=== PATIENT | female | born 1995 | race Caucasian/White ===

== ENCOUNTER 2019-12-12 13:45 | Outpatient (CLI) | payer OTHER ==
--- NOTE | 2019-12-12 15:59 | Ultrasound Report ---
PROCEDURE: OB Detailed Eval INDICATIONS: SCREENING OUTSIDE/PRIOR DATING DATA: Last menstrual period (LMP): 07/22/2019. LMP-based estimated date of delivery (KHADIJAH): 04/27/2020. First dating scan (date and location): 09/30/2019. [facility]. Estimated date of delivery (KHADIJAH) from first dating scan: 04/25/2020. TECHNIQUE: Real-time scanning was performed of the fetus, with image documentation and biometric measurements. Endovaginal scanning: Not performed COMPARISON: 09/30/2019 FINDINGS: General: A single living intrauterine gestation is present. Presentation: Vertex Placenta: Placental position is anterior, without previa. Amniotic fluid index: 13.9 cm, 45% for gestational age. heart rate: 165 beats per minute. Maternal cervical canal: 5.1 cm long; normal length is 2.5 cm or more. biometrics: Biparietal diameter: 5.2 cm, 21 weeks 4 days Head circumference: 19.9 cm, 22 weeks 0 days Abdominal circumference: 17.2 cm, 22 weeks 1 day Femur length: 3.6 cm, 21 weeks 2 days Estimated gestational age from initial scan: 20 weeks 5 days Composite gestational age from present scan: 21 weeks 5 days Estimated weight and percentile: 451 g, 94th percentile Measurement variability in biometric dating: +/- 10 days from 12-20 weeks gestation, +/- 2 weeks from 20-30 weeks gestation, +/- 3 weeks at 30 weeks gestation or later. Anatomic survey: Neuro: Ventricles are normal at less than 10 mm. Cisterna magna is normal at 3-11 mm. Cerebellum i s normal in size and morphology. Nuchal skin fold: Normal at less than 6 mm between 14 and 20 weeks gestational age. Face: Nose and lips, facial profile are normal. Spine: No evidence for spina bifida. Heart: 4-chambered heart is present. The bilateral ventricular outflow tracts are poorly characteriz ed. Diaphragm: Diaphragm is intact. Stomach: Left-sided stomach is present. Kidneys: No hydronephrosis. Normal is less than 5 mm in 2nd trimester, less than 7 mm in 3rd trimester. Cord: 3 vessel cord has orthotopic insertion. Bladder: Normal in size. Extremities: All 4 extremities are visualized. IMPRESSION: 1. Single live intrauterine gestation with a composite gestational age of 21 weeks and 5 days which i s concordant with initial scan. 2. Estimated weight percentile is 94%. Developing macrosomia cannot be excluded and continued s onographic surveillance recommended. 3. Poor characterization of the ventricular outflow tracts. Reviewed by: Alessandra Moore MD on 12/12/2019 3:58 PM PDT Approved by: Alessandra Moore MD on 12/12/2019 3:58 PM PDT Station ID: [id number]
== END 2019-12-12 13:46 | disposition home or self-care (01) ==
LOC: DI 13:45
PROVIDERS: ATTEND Nurse Practitioner Obstetrics & Gynecology
DX: Z36.89 Encounter for other specified antenatal screening (principal)
CPT/HCPCS: 76811

== ENCOUNTER 2020-01-12 12:45 | Outpatient (CLI) | payer OTHER ==
--- NOTE | 2020-01-12 17:15 | Ultrasound Report ---
PROCEDURE: OB F/U or Repeat INDICATIONS: F/U FAS FOR VENTRICULAR OUTFLOW TRACTS OUTSIDE/PRIOR DATING DATA: Last menstrual period (LMP): 07/22/2019. LMP-based estimated date of delivery (KHADIJAH): 04/27/2020. First dating scan (date and location): 09/30/2019. Estimated date of delivery (KHADIJAH) from first dating scan: 04/25/2020. TECHNIQUE: Real-time scanning was performed of the fetus, with image documentation and biometric measurements. COMPARISON: OB ultrasound 12/12/2019, FINDINGS: General: A single living intrauterine gestation is present. Presentation: Vertex Placenta: Placental position is anterior, without previa. Amniotic fluid index: 20 cm, 88th percentile for gestational age. Largest pocket 7.4 cm. heart rate: 152 beats per minute. Maternal cervical canal: 4.9 cm long; normal length is 2.5 cm or more. biometrics: Estimated gestational age from initial scan: 25 weeks 1 day Other: 4 chambered heart and outflow tracts are within normal limits. IMPRESSION: 1. Single intrauterine with ultrasound gestational age of 25 weeks 1 day. 2. Four-chamber heart and outflow tracts are within normal limits. Reviewed by: Anne Mohan MD on 01/12/2020 5:14 PM PST Approved by: Anne Mohan MD on 01/12/2020 5:14 PM PST Station ID: [id number]
== END 2020-01-12 12:46 | disposition home or self-care (01) ==
LOC: DI 12:45
PROVIDERS: ATTEND Nurse Practitioner Obstetrics & Gynecology
DX: Z36.89 Encounter for other specified antenatal screening (principal)
CPT/HCPCS: 76816

== ENCOUNTER 2020-01-31 07:00 | Outpatient (CLI) | payer OTHER ==
[2020-01-31 11:39] LABS: BILIRUBIN,URINE NEGATIVE (NEGATIVE); GLUCOSE, URINE (UA) NEGATIVE (NEGATIVE); KETONES,URINE (UA) NEGATIVE (NEGATIVE); LEUKOCYTE ESTERASE, URINE NEGATIVE (NEGATIVE); NITRITE,URINE NEGATIVE (NEGATIVE); OCCULT BLOOD,URINE NEGATIVE (NEGATIVE); PROTEIN,URINE NEGATIVE (NEGATIVE); UROBILINOGEN,URINE 0.2 (NORMAL) E.U./dL (NORMAL)
[2020-01-31 11:42] LABS: CLARITY,URINE CLEAR (CLEAR)
== END 2020-01-31 23:59 | disposition home or self-care (01) ==
LOC: LAB.R 07:00
PROVIDERS: ATTEND Advanced Practice Midwife
DX: Z34.00 Encounter for supervision of normal first pregnancy, unspecified trimester (principal); R30.0 Dysuria
CPT/HCPCS: 81001; 81003; 87086

== ENCOUNTER 2020-02-02 07:16 | Outpatient (CLI) | payer OTHER ==
[2020-02-02 08:59] LABS: HGB - HEMOGLOBIN 11.6 g/dL (12.0-16.0); MEAN CORPUSCULAR HEMOGLOBIN 30.9 pg (27.0-31.0); MEAN CORPUSCULAR HGB CONC 33.1 g/dL (32.0-36.0); MEAN CORPUSCULAR VOLUME 93.1 fL (81.0-99.0); MEAN PLATELET VOLUME 10.3 fL (7.9-10.8); RED BLOOD COUNT 3.76 10^6/uL (4.20-5.40); RED CELL DISTRIBUTION WIDTH 12.6 % (12.0-15.0); WHITE BLOOD COUNT 10.7 x10^3/uL (4.8-10.8)
[2020-02-02 10:10] LABS: BILIRUBIN,URINE NEGATIVE (NEGATIVE); GLUCOSE, URINE (UA) NEGATIVE (NEGATIVE); KETONES,URINE (UA) NEGATIVE (NEGATIVE); LEUKOCYTE ESTERASE, URINE NEGATIVE (NEGATIVE); NITRITE,URINE NEGATIVE (NEGATIVE); OCCULT BLOOD,URINE NEGATIVE (NEGATIVE); PH,URINE 7.5 PH (5.0-7.5); PROTEIN,URINE NEGATIVE (NEGATIVE); UROBILINOGEN,URINE 0.2 (NORMAL) E.U./dL (NORMAL)
[2020-02-02 10:44] LABS: CLARITY,URINE CLEAR (CLEAR)
== END 2020-02-02 07:17 | disposition home or self-care (01) ==
LOC: LAB 07:16
PROVIDERS: ATTEND Advanced Practice Midwife
DX: Z34.00 Encounter for supervision of normal first pregnancy, unspecified trimester (principal); Z36.89 Encounter for other specified antenatal screening; R30.0 Dysuria
CPT/HCPCS: 36415; 81001; 81003; 82950; 85027; 87086

== ENCOUNTER 2020-03-01 18:40 | Outpatient (CLI) | payer OTHER ==
--- NOTE | 2020-03-02 09:55 | Ultrasound Report ---
PROCEDURE: OB F/U or Repeat INDICATIONS: UTERINE SIZE>DATE DISCREPANY OUTSIDE/PRIOR DATING DATA: Last menstrual period (LMP): 07/22/2019. LMP-based estimated date of delivery (KHADIJAH): 04/27/2020. First dating scan (date and location): 09/30/2019. Estimated date of delivery (KHADIJAH) from first dating scan: 04/27/2020. TECHNIQUE: Real-time scanning was performed of the fetus, with image documentation and biometric measurements. Endovaginal scanning: Not performed COMPARISON: 01/12/2020 FINDINGS: General: A single living intrauterine gestation is present. Presentation: Cephalic Placenta: Placental position is anterior, without previa. Amniotic fluid index: 12.3 cm, normal for gestational age. heart rate: 149 beats per minute. Maternal cervical canal: 4.6 cm long; normal length is 2.5 cm or more. biometrics: Biparietal diameter: 8.7 cm, 35 weeks, 1 day 99th percentile Head circumference: 32.2 cm, 36 weeks, 3 days 99th percentile Abdominal circumference: 30.7 cm, 34 weeks, 5 days 90th percentile Femur length: 6.1 cm, 31 weeks, 5 days 33rd percentile Estimated gestational age from initial scan: 31 weeks, 6 days. Composite gestational age from present scan: 34 weeks, 4 days Estimated weight and percentile: 2347 g, 96th percentile Measurement variability in biometric dating: +/- 10 days from 12-20 weeks gestation, +/- 2 weeks from 20-30 weeks gestation, +/- 3 weeks at 30 weeks gestation or more. IMPRESSION: 1. There is asymmetric growth with disproportionately short femur length versus macrosomia. 2. Composite gestational age by today's exam is 3 weeks and 3 days ahead of the expected gestational age. 3. Normal amniotic fluid volume. Reviewed by: Beba Abraham MD on 03/02/2020 9:53 AM PST Approved by: Beba Abraham MD on 03/02/2020 9:53 AM PST Station ID: [id number]
== END 2020-03-01 18:41 | disposition home or self-care (01) ==
LOC: DI 18:40
PROVIDERS: ATTEND Advanced Practice Midwife
DX: O26.843 Uterine size-date discrepancy, third trimester (principal); Z3A.34 34 weeks gestation of pregnancy

== ENCOUNTER 2020-03-28 15:53 | Outpatient (CLI) | payer OTHER ==
--- NOTE | 2020-03-28 17:20 | Ultrasound Report ---
PROCEDURE: OB F/U or Repeat INDICATIONS: UTERINE SIZE/DATE DISCREPANCY OUTSIDE/PRIOR DATING DATA: Last menstrual period (LMP): 07/22/2019. LMP-based estimated date of delivery (KHADIJAH): 04/27/2020. First dating scan (date and location): 09/30/2019. Estimated date of delivery (KHADIJAH) as documented from ordering provider: 04/27/2020. It is noted that in itial ultrasound dating was 04/25/2020. TECHNIQUE: Real-time scanning was performed of the fetus, with image documentation and biometric measurements. COMPARISON: OB ultrasound 12/12/2019, 01/12/2020, 03/01/2020 FINDINGS: General: A single living intrauterine gestation is present. Presentation: Vertex Placenta: Placental position is anterior, without previa. Amniotic fluid index: 12.8 cm, 39th percentile for gestational age. 5.7 cm heart rate: 133 beats per minute. Maternal cervical canal: 4.6 cm long; normal length is 2.5 cm or more. biometrics: Biparietal diameter: 9.4 cm 38 weeks 1 day Head circumference: 34.9 cm 40 weeks 3 days Abdominal circumference: 33.5 cm 37 weeks 3 days Femur length: 6.8 cm 35 weeks 0 days Estimated gestational age from initial scan: 35 weeks 5 days Composite gestational age from present scan: 37 weeks 5 days Estimated weight and percentile: 31 67 g 88th percentile Measurement variability in biometric dating: +/- 10 days from 12-20 weeks gestation, +/- 2 weeks from 20-30 weeks gestation, +/- 3 weeks at 30 weeks gestation or more. Other: Not applicable. IMPRESSION: 1. Single live with estimated weight at the 88th percentile. Reviewed by: Anne Mohan MD on 03/28/2020 5:19 PM PST Approved by: Anne Mohan MD on 03/28/2020 5:19 PM PST Station ID: [id number]
== END 2020-03-28 15:54 | disposition home or self-care (01) ==
LOC: DI 15:53
PROVIDERS: ATTEND Nurse Practitioner Obstetrics & Gynecology
DX: O26.849 Uterine size-date discrepancy, unspecified trimester (principal); Z3A.35 35 weeks gestation of pregnancy

== ENCOUNTER 2020-04-05 07:00 | Outpatient (CLI) | payer OTHER | END 2020-04-05 23:59 | disposition home or self-care (01) | LOC: LAB.N 07:00 | PROVIDERS: ATTEND Nurse Practitioner Obstetrics & Gynecology | DX: Z36.85 Encounter for antenatal screening for Streptococcus B (principal) | CPT/HCPCS: 87797 ==

== ENCOUNTER 2020-04-11 08:05 | Outpatient (CLI) | payer OTHER ==
[2020-04-11 18:33] LABS: CANDIDA GROUP DNA POSITIVE (NEGATIVE); CANDIDA KRUSEI DNA NEGATIVE (NEGATIVE); TRICHOMONAS VAGINALIS DNA NEGATIVE (NEGATIVE)
== END 2020-04-11 23:59 | disposition home or self-care (01) ==
LOC: LAB.R 08:05
PROVIDERS: ATTEND Nurse Practitioner Obstetrics & Gynecology
DX: N89.8 Other specified noninflammatory disorders of vagina (principal)
CPT/HCPCS: 87661; 87801

== ENCOUNTER 2020-04-12 08:00 | Outpatient (CLI) | payer OTHER ==
[2020-04-13 12:48] LABS: HEPATITIS C ANTIBODY NON-REACTIVE (NON-REACTIVE)
== END 2020-04-12 23:59 | disposition home or self-care (01) ==
LOC: LAB 08:00
PROVIDERS: ATTEND Advanced Practice Midwife
DX: Z34.00 Encounter for supervision of normal first pregnancy, unspecified trimester (principal)
CPT/HCPCS: 36415; 86803

== ENCOUNTER 2020-04-21 04:10 | Inpatient (IN) | payer OTHER ==
[2020-04-21] MEDS ORDERED: TRANEXAMIC ACID IN NACL 1,000 MG/100 ML BAG IV PRN (06:18)
[2020-04-21] MEDS ORDERED: OXYTOCIN 10 UNIT/ML VIAL IM PRN (06:18)
[2020-04-21] MEDS ORDERED: LIDOCAINE-MPF 1% 30 ML VIAL ID PRN (06:18)
[2020-04-21] MEDS ORDERED: miSOPROStoL 200 MCG TABLET BC PRN (06:18)
[2020-04-21] MEDS ORDERED: ONDANSETRON 4 MG/2 ML VIAL IVP PRN (06:18)
[2020-04-21] MEDS ORDERED: CARBOPROST TROMETHAMINE 250 MCG/ML AMP IM PRN (06:18)
[2020-04-21] MEDS ORDERED: SODIUM CHLORIDE FLUSH 0.9% 10 ML SYRINGE IVP PRN (06:18)
[2020-04-21] MEDS ORDERED: METHYLERGONOVINE 0.2 MG/ML VIAL IM PRN (06:18)
[2020-04-21] MEDS ORDERED: OXYTOCIN/SODIUM CHLORIDE 500 ML IV PRN (06:18)
[2020-04-21] MEDS ORDERED: fentaNYL 100 MCG/2 ML VIAL IVP PRN (06:18)
[2020-04-21] MEDS ORDERED: LACTATED RINGERS 1,000 ML IV SCH (07:00)
[2020-04-21 07:42] LABS: BASOPHILS # (AUTO) 0.1 10^3/uL (0.0-0.1); BASOPHILS % (AUTO) 0.7 %; EOSINOPHILS # (AUTO) 0.1 10^3/uL (0.0-0.7); EOSINOPHILS % (AUTO) 0.5 %; HGB - HEMOGLOBIN 11.9 g/dL (12.0-16.0); LYMPHOCYTES # (AUTO) 1.9 10^3/uL (1.5-3.5); MEAN CORPUSCULAR HEMOGLOBIN 30.9 pg (27.0-31.0); MEAN CORPUSCULAR VOLUME 90.9 fL (81.0-99.0); MEAN PLATELET VOLUME 10.6 fL (7.9-10.8); MONOCYTES # (AUTO) 0.7 10^3/uL (0.0-1.0); MONOCYTES % (AUTO) 5.4 %; NEUTROPHILS # (AUTO) 9.3 10^3/uL (1.5-6.6); NEUTROPHILS % (AUTO) 76.6 %; PLT - PLATELET COUNT 194 10^3/uL (130-450); RED BLOOD COUNT 3.85 10^6/uL (4.20-5.40); RED CELL DISTRIBUTION WIDTH 12.9 % (12.0-15.0); WHITE BLOOD COUNT 12.1 x10^3/uL (4.8-10.8)
--- NOTE | 2020-04-21 08:02 | HISTORY & PHYSICAL EXAMINATION ---
Admit History - Visit Reason Visit Reason: Contractions - : 1 Parity: 0 Premature: 0 Ectopic: 0 : 0 Care: positive: Other ([facility] after transfer of care from [facility] at 18.6wks) Risk/History: positive: None Complications This : positive: None Smoking Status: Never smoker - Mother's Labs Mother's Blood Type: positive: O Mother's RH: positive: Positive GBS: positive: Group B Step Negative Rubella Status: positive: Immune - Other Maternal History Other Maternal History: -24yo at 39.1wks gestation who presents to Labor and Delivery with complaints of contractions since approximately 0200 this morning. -Reports movement -Denies ctx/VB/LOF - care with W after roly from [facility] at 18.6wks - Complications -none -Dating Criteria -Initial US at 10.0wks c/w LMP for KHADIJAH 04/27/2020 -OB Hx *G1: current -Medications * vitamin-daily *Omeprazole 20mg daily -Allergies *NKDA -Medical History *GERD *Hx Kidney disease -Surgical History *Appendectomy *Upperco teeth extraction -Family History *MGF- diabetes, stroke/CVS, Dementia *PGF- Diabetes, HTN, Head disease/UT *MGM- Arithritis *Ovarian cancer- maternal aunt; malignant tumor of ovary -Social History *Non contributory - Labs, Immunizations, and Findings *Initial U/S: 09/30/2019 @ 10.0wks c/w LMP dating O pos/Rubella immune VZV: immune Genetic testing: Quad screen neg; CF neg FAS: 12/12/2019 FAS WNL with the exception of poor visualization of ventricular outflow tracts. WAYNE WNL. 3VC. EFW 94%tile. f/u US: heart views wnl F/u- outflow tracks WNL 03/01 growth US: 96%- follow up in 4 weeks 03/28- follow up WAYNE 12.8 (WNL). EFW 88%tile Glucola : 122 Influenza:12/01/2019 TDAP:01/31/2020 GBS at 36.6wks- neg HSV: denies in self and partner Breast pump Rx: 01/31/2020 MOD: Anticipate ; It's a BOY! Lele; Partner Matthew pp contraception: IUD- has used mirena, possibly desires Paragard. [place] -SVE /-3 per RN exam -Vertex by digital exam -EFW by daniela's Marni# -FHTs per flowsheet -Assessment *24yo at 39.1wks gestation who presents in early active labor * Heart Tones- Category I -Plan *Admit to inpatient Labor and Delivery *Monitoring- Continuous- may do intermittent per protocol *Comfort measures available- position changes, whirlpool tub, fentanyl, and epidural per maternal preference *Diet/Activity- per maternal preference *Anticipate Meds/Allgy - Allergies Allergies/Adverse Reactions: Allergies Allergy/AdvReac Type Severity Reaction Status Date / Time No Known Drug Allergies Allergy Verified 04/21/20 06:40 Review of Systems - All Other Systems All Other Systems: reports: Reviewed and negative Physical - Abdominal Exam Vital Signs: Temp Pulse Resp BP Pulse Ox 36.8 C 103 H 22 128/75 98 04/21/20 07:34 04/21/20 07:34 04/21/20 07:34 04/21/20 07:34 04/21/20 04:23 Contraction Frequency (min/apart): 3-5 Contraction Intensity: positive: Moderate Uterine Resting Tone: positive: Soft - Monitoring Heart Rate Baseline: 130 Strip Review: positive: Category I (moderate variability, accels 15x15, no decels) - Presentation Presentation: positive: Vertex - Vaginal Exam Membranes: positive: Membranes intact Plan for Labor - Plan For Labor I expect patient to be DC'd or transferred within 96 hours.: Yes
[2020-04-21] MEDS ORDERED: diphenhydrAMINE INJ 50 MG/ML VIAL IVP STA (11:49)
--- NOTE | 2020-04-21 14:01 | DELIVERY NOTE ---
Delivery Note - Labor Labor: positive: Spontaneous - Delivery Method Delivery Method: positive: Spontaneous vaginal delivery - Presentation Presentation: positive: Vertex, Compound, YENIFER - right occiput anterior - Laceration Laceration: positive: 1st degree, Periurethral - Suture Suture Type: positive: Vicryl Suture Size: positive: 3-0 - Delivery Outcome Delivery Outcome: positive: Livebirth - Formoso : positive: Placed in direct skin contact with mother, Stimulated, Pompey used : 8 : 9 - Cord Cord: positive: 3 vessels - Placenta Placenta: positive: Intact, Spontaneous - Estimated Blood Loss Estimated Blood Loss (in cc): 100 - Post Delivery Events Post Delivery Events: positive: No post delivery events - Delivery Comments (Free Text/Narrative) Delivery Comments (Free Text/Narrative): Note: Labor: This 24 year old, , @39.1 wks gestation by 10.0week Ultrasound, confirmed by LMP, presented in early active labor. Cervix was 4/80/-3 and vertex. FHR pattern demonstrated 130 baseline in a Category I pattern. Normal labor course. NOx used for pain management. SROM occurred @ 1050 and amount and color of fluid were noted to be moderate and clear. : Normal of a 3985gm male infant, named Lele, on 04/21/2020 @ 1246. Nuchal not present. The was placed on maternal abdomen, stimulated, dried and placed skin to skin. Apgars 8 at one minute and 9 at five minutes. The umbilical cord was allowed to stop pulsating at which time it was doubly clamped by CNM and cut by FOB. Pitocin administered via IV for hemostasis. Fundal massage and gentle cord traction applied for active third stage management. Cord blood was obtained. Placenta delivered spontaneously and intact at 1253. Three vessel cord. EBL 100mL. Fourth Stage: Uterine fundus firm and without excessive bleeding. The perineum, vagina, and cervix were inspected and found to have sustained bilateral first degree periurethral lacerations. They were each repairs under sterile conditions in standard fashion with a 3-0 vicryl. Vaginal examination following repair was done. Tissues well approximated. initiated. Family bonding well. Both mother and baby are in stable condition.
[2020-04-21] MEDS ORDERED: WITCH HAZEL/GLYCERIN 1 PAD TOP PRN (14:04)
[2020-04-21] MEDS ORDERED: HYDROCORTISONE 1% CREAM 28 GM TUBE PR PRN (14:04)
[2020-04-21] MEDS: IBUPROFEN 600 MG TABLET PO SCH ×2 (14:31→20:38)
[2020-04-21] MEDS: ACETAMINOPHEN 500 MG TABLET PO SCH ×2 (14:31→23:17)
[2020-04-21] MEDS: DOCUSATE SODIUM 100 MG CAPSULE PO SCH (20:39)
[2020-04-21] MEDS ORDERED: CALCIUM CARBONATE CHEW 500 MG TABLET PO PRN ×2 (22:14→22:25)
[2020-04-22] MEDS: IBUPROFEN 600 MG TABLET PO SCH ×4 (02:37→16:14)
[2020-04-22] MEDS: DOCUSATE SODIUM 100 MG CAPSULE PO SCH (07:47)
[2020-04-22] MEDS: ACETAMINOPHEN 500 MG TABLET PO SCH ×2 (07:47→16:14)
--- NOTE | 2020-04-22 12:57 | PROVIDER PROGRESS NOTE ---
Subjective - Prog Note Date Prog Note Date: 04/22/20 Prog Note Time: 12:57 - Subjective Pt reports feeling: Improved Subjective: S: Norma is resting comfortably in bed. She reports her bleeding as spotting, and her pain as minimal. Says she can barely feel her stitches. is a little tender, but she describes a good deep latch and excellent assessment of baby's mouth. She would like to go home today O: Fundus firm Lochia rubra A: 24yo s/p on pp day 1 Normal recovery P: Evaluate for discharge home today or tomorrow, per Peds Continue routine care Objective - Vital Signs/Intake & Output Vital Signs: Vital Signs x48h Temp Pulse Resp BP Pulse Ox 04/22/20 12:00 36.9 C 63 16 130/76 100 04/22/20 08:00 36.8 C 74 16 133/78 H 100 Intake & Output: Intake & Output 04/19/20 04/20/20 04/21/20 04/22/20 23:59 23:59 23:59 23:59 Intake Total 990 Output Total 1650 Balance -660 - Lab Results Fish Bones: 04/21/20 07:20
[2020-04-22 16:40] VITALS: BP 137/80
--- NOTE | 2020-04-22 17:29 | Discharge Plan ---
Discharge Plan Problem Reviewed?: Yes Disposition: Home, Self Care Condition: Good Additional Instructions or Follow Up instructions: Follow up with midwifery at 1 and 6 weeks No Smoking: If you smoke, Please STOP! Call for help. Follow-up with: Destini Chua ARNP [Provider Admit Priv/Credential] -
--- NOTE | 2020-04-22 17:39 | DISCHARGE SUMMARY ---
Discharge Summary Condition at Discharge: Good Discharge Disposition: 01 Home, Self Care - HPI History of Present Illness: Admit Date 04/21/2019 Discharge Date 04/22/2019 Diagnosis on Admission: 1. A 24yo at 39.1 week intrauterine 2. Early Active Labor Diagnosis on Discharge 1. A 24yo s/p spontaneous vaginal delivery on 04/21/2020 2. Normal recovery Brief History: This 24 year old, , @39.1 wks gestation by 10.0week Ultrasound, confirmed by LMP, presented in early active labor. Cervix was 4/80/-3 and vertex. FHR pattern demonstrated 130 baseline in a Category I pattern. Normal labor course. NOx used for pain management. SROM occurred @ 1050 and amount and color of fluid were noted to be moderate and clear. : Normal of a 3985gm male infant, named Lele, on 04/21/2020 @ 1246 Apgars were 8 and 9- and 1 and 5 minutes respectively. EBL 100 mL. The patient has a 1st degree bilateral periurethral lacerations that were repaired with 3-0 vicryl in usual fashion under sterile conditions. She has been doing well in her course. She is ambulating and tolerating a regular diet. She is urinating without difficulty and her lochia is normal. Her pain is well controlled with oral medications. She will be discharg ed home today on day #1 without need for prescriptions. She intends to follow up with Midwifery at [facility] in 1, and 6 weeks for routine visit. She has been given precautions to call if she has any worsening fevers, chills, abdominal pain, increased bleeding or foul smelling vaginal lochia. - ALLERGIES Allergies/Adverse Reactions: Allergies Allergy/AdvReac Type Severity Reaction Status Date / Time No Known Drug Allergies Allergy Verified 04/21/20 06:40 - MEDICATIONS Home Medications: Ambulatory Orders Medication Instructions Recorded Confirmed No Known Home Medications 04/21/20 04/21/20 - LABS Result Diagrams: 04/21/20 07:20
--- NOTE | 2020-04-22 18:50 | Labor Flowsheet ---
Labor Flowsheet Datetime Report Generated by CPN: 04/22/2020 18:50 Datetime: 04/22/2020 16:20 VITAL SIGNS NBP Sys/Sandra/Mean (mmHg): 137 : 80 : 92 Pulse: 66 Datetime: 04/22/2020 12:04 SpO2 (%): 100 Datetime: 04/21/2020 16:14 Respirations: 19 Temperature (C): 36.7 Temperature Route: Oral PAIN Pain Scale: 1 Pain Presence: Intermittent Pain Type: Cramping Pain Relief Measures: Comfort Measures Datetime: 04/21/2020 14:00 Stage of : Recovery Datetime: 04/21/2020 13:50 Pain Location: Perineum Datetime: 04/21/2020 12:55 LaborFlag: Labor Datetime: 04/21/2020 12:45 UTERINE ACTIVITY Monitor Mode: Palpation Frequency (min): 1-2 Quality: Strong Duration (sec): 50-60 Pattern: Normal: <= 5 Contractions in 10 Minutes Resting Tone (Palpate): Relaxed Comments: indeterminant baseline, provider at bedside Datetime: 04/21/2020 12:30 ASSESSMENT A Monitor Mode: Telemetry FHR Baseline Rate : 110 Variability: Moderate 6-25 bpm Accelerations: 15X15 Decelerations: Early; Late Category: Category II Datetime: 04/21/2020 12:26 Pushing Progress: Descent with Pushing Datetime: 04/21/2020 12:12 Pushing Position: Pushing Right Side Datetime: 04/21/2020 12:03 VAGINAL EXAM Dilatation (cm): 10.0 Effacement (%): 100 Station: 2 Exam by: H Harshil STAGE 2 Pushing: Coached on Pushing; Urge to Push Datetime: 04/21/2020 11:59 Actions for Decelerations: Oxygen Applied Datetime: 04/21/2020 11:57 MEDICATIONS Medication Comments: IV Benadryl Datetime: 04/21/2020 11:46 Vaginal Exam Comments: anterior lip Datetime: 04/21/2020 11:43 Stage 2 Comments: pt bearing down with ctxs, instructed not to push past cervix Datetime: 04/21/2020 11:36 COMMUNICATION Communication: Provider at Bedside Datetime: 04/21/2020 11:35 Patient Position/Activity: Left Lateral Datetime: 04/21/2020 11:32 Membrane Status: Ruptured Membranes Rupture Method: Artificial Amniotic Fluid Color: Clear Membrane Comments: forebag Datetime: 04/21/2020 11:29 Pain Coping: Crying; Writhing Datetime: 04/21/2020 11:22 Monitor Interventions for FHR: Ultrasound Adjusted Datetime: 04/21/2020 10:57 Comfort Measures: Breathing/Relaxation; Coaching; Back Rub Given; Family Support Patient Care Comments: pt standing forward leaning with support of Datetime: 04/21/2020 10:50 Amniotic Fluid Amount: Moderate Datetime: 04/21/2020 10:49 Hygiene: Kim Care I/O Interventions: Clear Liquids Given Datetime: 04/21/2020 10:47 Vaginal Bleeding: Normal Show Datetime: 04/21/2020 10:36 PATIENT CARE IV/Blood Work: IV Saline Locked Datetime: 04/21/2020 10:24 Monitor Interventions for UA: [place] Adjusted Datetime: 04/21/2020 10:10 Provider Reviewed Strip: Yes Datetime: 04/21/2020 10:08 Pain Assessment Comments: pt resumes use of nitrous, denies other medications Datetime: 04/21/2020 09:30 FHR Baseline Changes: No Baseline Change Datetime: 04/21/2020 09:08 Provider Notified (Name): H Swarthmore Datetime: 04/21/2020 08:31 Strip Reviewed by: H Swarthmore Communication Comments: no orders Datetime: 04/21/2020 07:50 Labor/Induction: Labor Stages; Activity Pain Management: Pain Scale/Goals; Comfort Measures Teaching Comments: educated on tub safety Datetime: 04/21/2020 07:11 MATERNAL ASSESSMENT Level of Consciousness: Alert DTR's/Clonus: DTRs 2+; No Clonus Headache: Denies Breath Sounds, Left: Clear and Equal Breath Sounds, Right: Clear and Equal Nausea/Vomiting: Denies RUQ Epigastric Pain: Denies ANESTHESIA Anesthesia Plans: None TEACHING Instructional Method: Verbal; Verbalized Understanding Plan of Care: Plan of Care Discussed; Vaginal Delivery Unit Routine: [place] to Room; Call Falk; Monitoring; Safety/Fall Risk Prevention; Bathroom Pr ivileges
== END 2020-04-22 18:40 | disposition home or self-care (01) | DRG 807 ==
LOC: WFO 04:10 → FBP 04:14 → WFO 06:17 → FBP 06:18
PROVIDERS: ADMIT Advanced Practice Midwife; ATTEND Advanced Practice Midwife
PROC: 10E0XZZ Delivery of Products of Conception, External Approach (ICD-10-PCS; principal; 2020-04-21)
PROC: 0HQ9XZZ Repair Perineum Skin, External Approach (ICD-10-PCS; 2020-04-21)
DX: O71.82 Other specified trauma to perineum and vulva (principal); Z37.0 Single live birth; Z3A.39 39 weeks gestation of pregnancy; Z20.822 Contact with and (suspected) exposure to COVID-19
CPT/HCPCS: 36415; 59025; 85025; 86850; 86900; 86901; 87635; 99213; A9270; J1200; J7120

== ENCOUNTER 2020-04-28 15:55 | Outpatient (CLI) | payer OTHER ==
--- NOTE | 2020-04-28 19:55 | Labor Flowsheet ---
Labor Flowsheet Datetime Report Generated by CPN: 04/28/2020 19:55 Datetime: 04/22/2020 16:20 VITAL SIGNS NBP Sys/Sandra/Mean (mmHg): 137 : 80 : 92 Pulse: 66 Datetime: 04/22/2020 12:04 SpO2 (%): 100 Datetime: 04/21/2020 16:14 Respirations: 19 Temperature (C): 36.7 Temperature Route: Oral PAIN Pain Scale: 1 Pain Presence: Intermittent Pain Type: Cramping Pain Relief Measures: Comfort Measures Datetime: 04/21/2020 14:00 Stage of : Recovery Datetime: 04/21/2020 13:50 Pain Location: Perineum Datetime: 04/21/2020 12:55 LaborFlag: Labor Datetime: 04/21/2020 12:45 UTERINE ACTIVITY Monitor Mode: Palpation Frequency (min): 1-2 Quality: Strong Duration (sec): 50-60 Pattern: Normal: <= 5 Contractions in 10 Minutes Resting Tone (Palpate): Relaxed Comments: indeterminant baseline, provider at bedside Datetime: 04/21/2020 12:30 ASSESSMENT A Monitor Mode: Telemetry FHR Baseline Rate : 110 Variability: Moderate 6-25 bpm Accelerations: 15X15 Decelerations: Early; Late Category: Category II Datetime: 04/21/2020 12:26 Pushing Progress: Descent with Pushing Datetime: 04/21/2020 12:12 Pushing Position: Pushing Right Side Datetime: 04/21/2020 12:03 VAGINAL EXAM Dilatation (cm): 10.0 Effacement (%): 100 Station: 2 Exam by: H Harshil STAGE 2 Pushing: Coached on Pushing; Urge to Push Datetime: 04/21/2020 11:59 Actions for Decelerations: Oxygen Applied Datetime: 04/21/2020 11:57 MEDICATIONS Medication Comments: IV Benadryl Datetime: 04/21/2020 11:46 Vaginal Exam Comments: anterior lip Datetime: 04/21/2020 11:43 Stage 2 Comments: pt bearing down with ctxs, instructed not to push past cervix Datetime: 04/21/2020 11:36 COMMUNICATION Communication: Provider at Bedside Datetime: 04/21/2020 11:35 Patient Position/Activity: Left Lateral Datetime: 04/21/2020 11:32 Membrane Status: Ruptured Membranes Rupture Method: Artificial Amniotic Fluid Color: Clear Membrane Comments: forebag Datetime: 04/21/2020 11:29 Pain Coping: Crying; Writhing Datetime: 04/21/2020 11:22 Monitor Interventions for FHR: Ultrasound Adjusted Datetime: 04/21/2020 10:57 Comfort Measures: Breathing/Relaxation; Coaching; Back Rub Given; Family Support Patient Care Comments: pt standing forward leaning with support of Datetime: 04/21/2020 10:50 Amniotic Fluid Amount: Moderate Datetime: 04/21/2020 10:49 Hygiene: Kim Care I/O Interventions: Clear Liquids Given Datetime: 04/21/2020 10:47 Vaginal Bleeding: Normal Show Datetime: 04/21/2020 10:36 PATIENT CARE IV/Blood Work: IV Saline Locked Datetime: 04/21/2020 10:24 Monitor Interventions for UA: [place] Adjusted Datetime: 04/21/2020 10:10 Provider Reviewed Strip: Yes Datetime: 04/21/2020 10:08 Pain Assessment Comments: pt resumes use of nitrous, denies other medications Datetime: 04/21/2020 09:30 FHR Baseline Changes: No Baseline Change Datetime: 04/21/2020 09:08 Provider Notified (Name): H Hamden Datetime: 04/21/2020 08:31 Strip Reviewed by: H Hamden Communication Comments: no orders Datetime: 04/21/2020 07:50 Labor/Induction: Labor Stages; Activity Pain Management: Pain Scale/Goals; Comfort Measures Teaching Comments: educated on tub safety Datetime: 04/21/2020 07:11 MATERNAL ASSESSMENT Level of Consciousness: Alert DTR's/Clonus: DTRs 2+; No Clonus Headache: Denies Breath Sounds, Left: Clear and Equal Breath Sounds, Right: Clear and Equal Nausea/Vomiting: Denies RUQ Epigastric Pain: Denies ANESTHESIA Anesthesia Plans: None TEACHING Instructional Method: Verbal; Verbalized Understanding Plan of Care: Plan of Care Discussed; Vaginal Delivery Unit Routine: [place] to Room; Call Falk; Monitoring; Safety/Fall Risk Prevention; Bathroom Pr ivileges
== END 2020-04-28 16:50 | disposition home or self-care (01) ==
LOC: WFO 15:55 → FBP 15:56 → WFO 16:50
PROVIDERS: ATTEND Nurse Practitioner Obstetrics & Gynecology
DX: Z39.1 Encounter for care and examination of lactating mother (principal)
CPT/HCPCS: 99403

== ENCOUNTER 2020-05-17 10:56 | Outpatient (CLI) | payer OTHER | END 2020-05-17 12:00 | disposition home or self-care (01) | LOC: WFO 10:56 → FBP 10:58 → WFO 12:00 | PROVIDERS: ATTEND Advanced Practice Midwife | DX: Z39.1 Encounter for care and examination of lactating mother (principal) | CPT/HCPCS: 99404 ==

== ENCOUNTER 2020-05-19 10:54 | Outpatient (CLI) | payer OTHER | END 2020-05-19 11:25 | disposition home or self-care (01) | LOC: WFO 10:54 → FBP 10:56 → WFO 11:25 | PROVIDERS: ATTEND Advanced Practice Midwife | DX: Z39.1 Encounter for care and examination of lactating mother (principal) | CPT/HCPCS: 99402 ==

== ENCOUNTER 2021-07-31 15:47 | Outpatient (CLI) | payer OTHER ==
[2021-07-31 16:11] LABS: BASOPHILS # (AUTO) 0.1 10^3/uL (0.0-0.1); BASOPHILS % (AUTO) 0.8 %; EOSINOPHILS # (AUTO) 0.1 10^3/uL (0.0-0.7); EOSINOPHILS % (AUTO) 1.1 %; HCT - HEMATOCRIT 37.3 % (37.0-47.0); HGB - HEMOGLOBIN 12.7 g/dL (12.0-16.0); LYMPHOCYTES # (AUTO) 1.7 10^3/uL (1.5-3.5); LYMPHOCYTES % (AUTO) 26.9 %; MEAN CORPUSCULAR HEMOGLOBIN 29.7 pg (27.0-31.0); MEAN CORPUSCULAR VOLUME 87.4 fL (81.0-99.0); MEAN PLATELET VOLUME 9.8 fL (7.9-10.8); MONOCYTES # (AUTO) 0.4 10^3/uL (0.0-1.0); NEUTROPHILS % (AUTO) 63.9 %; PLT - PLATELET COUNT 237 10^3/uL (130-450); RED BLOOD COUNT 4.27 10^6/uL (4.20-5.40); RED CELL DISTRIBUTION WIDTH 12.2 % (12.0-15.0); WHITE BLOOD COUNT 6.3 x10^3/uL (4.8-10.8)
[2021-08-01 04:09] LABS: HBsAG SCREEN Negative (Negative)
[2021-08-01 06:10] LABS: HCV AB <0.1 s/co ratio (0.0-0.9); HIV SCREEN 4TH GENERATION Non Reactive (Non Reactive)
[2021-08-01 07:11] LABS: VARICELLA-ZOSTER AB IGG 1739 index (Immune >165)
[2021-08-01 08:10] LABS: RPR Non Reactive (Non Reactive)
== END 2021-07-31 15:48 | disposition home or self-care (01) ==
LOC: LAB 15:47
PROVIDERS: ATTEND Nurse Practitioner Obstetrics & Gynecology
DX: Z36.89 Encounter for other specified antenatal screening (principal); Z36.0 Encounter for antenatal screening for chromosomal anomalies
CPT/HCPCS: 36415; 85025; 86592; 86762; 86787; 86803; 86850; 86900; 86901; 87340; 87389

== ENCOUNTER 2021-12-06 12:23 | Outpatient (CLI) | payer OTHER ==
[2021-12-06 17:36] LABS: HCT - HEMATOCRIT 32.7 % (37.0-47.0); HGB - HEMOGLOBIN 10.9 g/dL (12.0-16.0); MEAN CORPUSCULAR HEMOGLOBIN 30.3 pg (27.0-31.0); MEAN CORPUSCULAR HGB CONC 33.3 g/dL (32.0-36.0); MEAN CORPUSCULAR VOLUME 90.8 fL (81.0-99.0); RED BLOOD COUNT 3.6 10^6/uL (4.20-5.40); RED CELL DISTRIBUTION WIDTH 13.4 % (12.0-15.0)
== END 2021-12-06 12:24 | disposition home or self-care (01) ==
LOC: LAB.N 12:23
PROVIDERS: ATTEND Nurse Practitioner Obstetrics & Gynecology
DX: Z36.9 Encounter for antenatal screening, unspecified (principal)
CPT/HCPCS: 36415; 82950; 85027

== ENCOUNTER 2022-02-18 06:52 | Inpatient (IN) | payer OTHER ==
[2022-02-18] MEDS ORDERED: miSOPROStoL 200 MCG TABLET ONE (09:44)
[2022-02-18] MEDS ORDERED: TRANEXAMIC ACID IN NACL 1,000 MG/100 ML BAG IV ONE (09:44)
[2022-02-18] MEDS ORDERED: TRANEXAMIC ACID IN NACL 1,000 MG/100 ML BAG IV PRN (10:05)
[2022-02-18] MEDS ORDERED: SODIUM CHLORIDE FLUSH 0.9% 10 ML SYRINGE IVP PRN (10:05)
[2022-02-18] MEDS ORDERED: hydrALAZINE INJ 20 MG/ML VIAL IVP PRN ×2 (10:05)
[2022-02-18] MEDS ORDERED: METHYLERGONOVINE 0.2 MG/ML VIAL IM PRN (10:05)
[2022-02-18] MEDS ORDERED: miSOPROStoL 200 MCG TABLET BC PRN (10:05)
[2022-02-18] MEDS ORDERED: OXYTOCIN 10 UNIT/ML VIAL IM PRN (10:05)
[2022-02-18] MEDS ORDERED: NIFEdipine 10 MG CAPSULE PO PRN (10:05)
[2022-02-18] MEDS ORDERED: TERBUTALINE 1 MG/ML VIAL SUBQ PRN (10:05)
[2022-02-18] MEDS ORDERED: lidocaine 1% 20 ML MDV ID PRN (10:05)
[2022-02-18] MEDS ORDERED: miSOPROStoL 200 MCG TABLET PR PRN (10:05)
[2022-02-18] MEDS ORDERED: CARBOPROST TROMETHAMINE 250 MCG/ML AMP IM PRN (10:05)
[2022-02-18] MEDS ORDERED: LABETALOL 20 MG/4 ML SYRINGE IVP PRN ×3 (10:05)
[2022-02-18] MEDS ORDERED: fentaNYL 100 MCG/2 ML VIAL IVP PRN (10:05)
--- NOTE | 2022-02-18 10:27 | HISTORY & PHYSICAL EXAMINATION ---
Admit History - Visit Reason Visit Reason: Contractions - : 2 Parity: 1 Premature: 0 Ectopic: 0 : 0 Care: positive: [facility] Risk/History: positive: None Complications This : positive: None Smoking Status: Never smoker - Mother's Labs Mother's Blood Type: positive: O Mother's RH: positive: Positive GBS: positive: Group B Step Negative Rubella Status: positive: Immune Meds/Allgy - Home Medications Home Medications: Ambulatory Orders Medication Instructions Recorded Confirmed Oseltamivir Phosphate [Tamiflu] 75 mg PO BID #10 cap 01/17/22 - Allergies Allergies/Adverse Reactions: Allergies Allergy/AdvReac Type Severity Reaction Status Date / Time No Known Drug Allergies Allergy Verified 04/21/20 06:40 Review of Systems - Constitutional Constitutional: denies: Fatigue, Fever, Chills - Eyes Eyes: denies: Blurred vision, Spots in vision, Dipolpia - Cardiovascular Cariovascular: denies: Irregular heart rate, Palpitations, Chest pain, Edema - Respiratory Respiratory: denies: Cough, Wheezing, SOB at rest - Gastrointestinal Gastrointestinal: denies: Constipation, Diarrhea, Nausea, Vomiting - Genitourinary Genitourinary: denies: Dysuria - Integumentary Integumentary: denies: Rash, Pruritis - Neurological Neurological: denies: Headache - Psychiatric Psychiatric: denies: Depression, Anxiety Physical - Abdominal Exam Vital Signs: Temp Pulse Resp BP Pulse Ox O2 Flow Rate 37.1 C 85 16 134/69 H 02/18/22 07:40 02/18/22 07:40 02/18/22 07:40 02/18/22 07:40 Contraction Frequency (min/apart): 10 Contraction Intensity: positive: Moderate Uterine Resting Tone: positive: Soft - Monitoring Heart Rate Baseline: 140 Strip Review: positive: Category I - Presentation Presentation: positive: Vertex - Vaginal Exam Membranes: positive: Membranes intact Dilation (in cm): 4 Effacement (%): 70 Station: positive: -2 Cervical Position: positive: Posterior - Speculum Exam Speculum Exam Performed: positive: No Findings: positive: Other Plan for Labor - Plan For Labor I expect patient to be DC'd or transferred within 96 hours.: Yes Plan for Labor: HPI: This 26yo @ 39.2wks gestation by LMP c/w 9.6wk U/S presents to [facility] with c/o contractions. She was found to contract every 10 minutes however was arnaud every 3-5 minutes at home. Upon arrival cervix was 3/50/-2, posterior and vertex with intact membranes. She ambulated x 2 hours and repeat S VE unchanged. Secondary to gestational age pt desires to be admitted for labor augmentation. She denies vaginal bleeding however did have some pink tinged discharge early this morning. She denies leakage of fluid and reports +FM. She has been a patient of [facility] for the duration of her which has remained uncomplicated. She will be admitted to [facility] for AROM for labor augmentation. She is supported by her Matthew. Dating criteria: LMP 05/19/2021 Initial U/S @ 9.6wks c/w LMP dating Serial exams - agree residential counselor Hx: Term NSVB x 1 (39.1wks , [id number], male). SAB x0. Last pap 2018 WNL, No hx of abnormals. Medical Hx: Recurrent UTIs, Anxiety/depression Surgical Hx: Appendectomy - 2007 Family Hx: Diabetes- MGF, PGF, PGM; Stroke- MGF; Cancer- PGM Meds: PNV Allergies: None known Social: , lives with Matthew who is active duty [place]. Works as a teacher in the [employer]. No tobacco, ETOH or recreational drug use. Caffeine intake is minimal. course: Initial U/S @ 9.6wks c/w LMP dating O positive, antibody negative Rubella immune; varicella immune NIPS - negative FAS @ 20wks WNL. Anterior placenta, no previa. Size c/w dating. 3VC. WAYNE WNL. Glucola 129 Tdap 12/06/2021 GBS neg Physical exam: Normocephalic, atraumatic Heart RRR w/o M/G/R Lungs CTAB Abdomen gravid, soft, nontender. EFW 3800g FHR baseline 140s, moderate variability, + accels, no decels Contractions palpate moderate every 8-10 minutes with soft resting tone SVE 4/70/-2, posterior. Vertex. Membranes intact - AROM occurred at 1017 and was noted to be a moderate amount of clear fluid. Bilateral LE's trace edema. Mood is good. Assessment: 26yo @ 39.2wks gestation by LMP c/w 9.6wks gestation Early labor GBS neg FHR Category I Plan: Pt admitted for labor augmentation with AROM. Repeat SVE x 4 hours or sooner if needed. Continuous monitoring. Jacuzzi PRN. Nitrous oxide PRN. Epidural per maternal request. Anticipate .
--- NOTE | 2022-02-18 10:34 | PROVIDER PROGRESS NOTE ---
- HPI Chief Complaint: Labor Check Current : Current EDU 02/23/22 Gestation 39 Weeks and 2 Days 2 Para 1 Vital Signs Temperature 37.1 C 02/18/22 07:40 Heart Rate 85 02/18/22 07:40 Respiratory Rate 16 02/18/22 07:40 Blood Pressure 134/69 H 02/18/22 07:40 Temperature 37.1 C 02/18/22 07:40 Heart Rate 85 02/18/22 07:40 Respiratory Rate 16 02/18/22 07:40 Blood Pressure 134/69 H 02/18/22 07:40 O2 Saturation If not protocol: Oxygen Flow, liters/minute - Procedures OB Procedure Performed: NST Diagnosis/Indication for NST: Other NST Procedure: NST Procedure Start Date 02/18/22 Start Time 07:10 Stop Time 07:40 Vibroacoustic Stimulation Used No Patient States Movement Yes - Plan Plan: Norma presents today with c/o contractions. She was arnaud intermittently yesterday evening but states they never got closer than 10 minutes apart and she was able to fall asleep. She reports mild contractions throughout the night but nothing consistent or overly painful. She states this morning when she was up and around her contractions increased in both frequency and intensity and progressed to every 3-5 minutes. She denies vaginal bleeding or leakage of fluid and reports +FM. She is supported by her Matthew today. NST reactive. FHR baseline 140s, moderate variability, + accels, no decels Contractions palpate moderate every 10 minutes with soft resting tone SVE 3/50/-2, posterior, vertex. Repeat after 2 hours - unchanged. Reviewed options with patient of expectant management with discharge home vs augmentation of labor with AROM. Reviewed risks, benefits, alternatives and all questions answered. Pt elects to be admitted for labor augmentation. FINAL DIAGNOSIS: Early labor, >37wks gestation
[2022-02-18 10:52] LABS: BASOPHILS # (AUTO) 0.1 10^3/uL (0.0-0.1); BASOPHILS % (AUTO) 0.5 %; EOSINOPHILS # (AUTO) 0.1 10^3/uL (0.0-0.7); EOSINOPHILS % (AUTO) 0.7 %; HCT - HEMATOCRIT 34.3 % (37.0-47.0); HGB - HEMOGLOBIN 11.6 g/dL (12.0-16.0); LYMPHOCYTES # (AUTO) 1.6 10^3/uL (1.5-3.5); LYMPHOCYTES % (AUTO) 16.5 %; MEAN CORPUSCULAR HEMOGLOBIN 30.2 pg (27.0-31.0); MEAN CORPUSCULAR HGB CONC 33.8 g/dL (32.0-36.0); MEAN CORPUSCULAR VOLUME 89.3 fL (81.0-99.0); MEAN PLATELET VOLUME 10.3 fL (7.9-10.8); MONOCYTES # (AUTO) 0.6 10^3/uL (0.0-1.0); NEUTROPHILS # (AUTO) 7.1 10^3/uL (1.5-6.6); NEUTROPHILS % (AUTO) 75.2 %; PLT - PLATELET COUNT 167 10^3/uL (130-450); RED BLOOD COUNT 3.84 10^6/uL (4.20-5.40); RED CELL DISTRIBUTION WIDTH 13.2 % (12.0-15.0); WHITE BLOOD COUNT 9.4 x10^3/uL (4.8-10.8)
[2022-02-18] MEDS ORDERED: LACTATED RINGERS 1,000 ML IV SCH (11:00)
[2022-02-18] MEDS ORDERED: SODIUM CHLORIDE FLUSH 0.9% 10 ML SYRINGE IVP SCH (11:00)
[2022-02-18] MEDS: OXYTOCIN/SODIUM CHLORIDE 500 ML IV PRN ×2 (15:11→17:40)
[2022-02-18] MEDS ORDERED: HYDROCORTISONE 1% CREAM 28 GM TUBE PR PRN (15:36)
[2022-02-18] MEDS ORDERED: WITCH HAZEL/GLYCERIN 1 PAD TOP PRN (15:36)
--- NOTE | 2022-02-18 15:36 | DELIVERY NOTE ---
Delivery Note - Labor Labor: positive: Augmented by ARM - Infant Delivery Method Delivery Method: positive: Spontaneous vaginal delivery - Presentation Presentation: positive: Vertex, OA - occiput anterior - Nuchal Cord Nuchal Cord: positive: None - Amniotic Fluid Description Amniotic Fluid Description: positive: Clear - Episiotomy Type Episiotomy Type: positive: None - Laceration Laceration: positive: None - Delivery Outcome Delivery Outcome: positive: Livebirth - [place]: positive: Placed in direct skin contact with mother, Stimulated, Warmed, [place] used sex: positive: Female - Cord Cord: positive: 3 vessels - Placenta Placenta: positive: Intact, Spontaneous - Estimated Blood Loss Estimated Blood Loss (in cc): 300 - Post Delivery Events Post Delivery Events: positive: No post delivery events - Delivery Comments (Free Text/Narrative) Delivery Comments (Free Text/Narrative): Labor: This 26yo @ 39.2wks gestation by LMP c/w 9/6wk U/S presented on 02/18/2022 with c/o contractions. Cervix was 3/70/-2, posterior and vertex with intact membranes. AROM occurred for lab or augmentation at 1015 and was noted to be a moderate amount of clear fluid. FHR pattern demonstrated Category I pattern for the majority of her labor with intermittent periods of Category II however overall remained reassuring. Normal labor course. Pt began spontaneously pushing at 1453 and is c/c/0 at 1455. : Normal SVB of viable female on 02/18/2022 @ 1509. No nuchal cord. The was placed on maternal abdomen, stimulated, dried, and placed skin to skin. 's were 7/8 at 1 and 5 minutes respectively. Pitocin administered via IV for hemostasis. The umbilical cord was allowed to stop pulsating at which time it was doubly clamped by CNM and cut by FOB. 3VC. Cord blood was obtained. Fundal massage and gentle cord traction applied for active management of the third stage. Placenta delivered spontaneously and intact at 1514. EBL 300mL. Fourth stage: Uterine fundus firm and there is no excessive bleeding. The perineum, vagina, and cervix were inspected and noted to be intact. initiated. Family bonding well. Both mother and baby were left in stable condition.
[2022-02-18] MEDS: IBUPROFEN 800 MG TABLET PO SCH ×2 (17:14→23:01)
[2022-02-18] MEDS: ACETAMINOPHEN 500 MG TABLET PO SCH (17:14)
[2022-02-18] MEDS ORDERED: DOCUSATE SODIUM 100 MG CAPSULE PO SCH (21:00)
[2022-02-18] MEDS ORDERED: polyethylene glycoL 3350 17 GM PACKET PO SCH (22:00)
[2022-02-19] MEDS: ACETAMINOPHEN 500 MG TABLET PO SCH ×2 (00:03→09:33)
[2022-02-19] MEDS: IBUPROFEN 800 MG TABLET PO SCH ×2 (04:48→12:05)
--- NOTE | 2022-02-19 14:39 | Discharge Plan ---
Discharge Plan Problem Reviewed?: Yes Disposition: Home, Self Care Condition: Good Diet: Regular Activity Restrictions: No Restrictions Shower Restrictions: No Driving Restrictions: No Weight Bearing: Full Weight Instruction Topics: Vaginal After No Smoking: If you smoke, Please STOP! Call for help. Follow-up with: Mikayla Quiroz CNM, ARNP [Primary Care Provider] - 1 Week (Phone visit with Mikayla Quiroz CNM/CAMILLA February 26 @ 3:15pm.)
--- NOTE | 2022-02-19 14:45 | DISCHARGE SUMMARY ---
Discharge Summary Condition at Discharge: Good Discharge Disposition: 01 Home, Self Care - HOSPITAL COURSE Hospital Course: Date of Admission: 02/18/2022 Date of Discharge:02/19/2022 Diagnosis on Admission: 1. 26yo @ 39.2 wks gestation by LMP c/w 9.6wk U/S 2. Early labor 3. FHR Category I 4. GBS neg Diagnosis on Discharge: 1. 26yo PPD#1 s/p TSVD viable female infant 2. 3. Normal recovery Brief History: She is a patient of [facility] who presented on 02/18/2022 with c/o contractions. She was noted to be 3/70/-2, posterior and ve rtex with intact membrane and contract every 8-10 minutes with soft resting tone. She elected to stay for labor augmentation and was admitted for AROM at 1015 which was noted to be a moderate amount of clear fluid. She progressed spontaneously to deliver a viable female on 02/18/2022 at 1509 over intact perineum. Apgars were 7/8 at 1 and 5 minutes respectively. EBL 300mL. Following delivery she was noted to have moderate bleeding and therefore 800mcg BC misoprostol was administered in addition to routine pitocin. Her bleeding was then within normal limits and has remained minimal since that time. She has been doing well in her course. She is ambulating and tolera ting a regular diet. She is urinating without difficulty and her lochia is normal. Her pain is well controlled with oral medications. She is bonding well with her baby and she is without difficulty. She will be discharged home today on day #1 with instructions to continue taking her vitamin while and to continue taking ibuprofen and tylenol over the counter as needed for pain management. She intends to follow up with myself at [facility] in 1 week for routine visit or sooner if needed. She has been given precautions to call if she has any worsening fevers, chills, abdominal pain, increased vaginal bleeding or foul smelling vaginal lochia. Physical Exam: Normocephalic, atraumatic. Heart RRR w/o M/G/R, lungs CTAB, abdomen soft and nontender with fundus firm a U. Perineum intact, light lochia rubra. Bilateral LE's trace edema. Mood is somewhat teary but she states she feels well supported. - ALLERGIES Allergies/Adverse Reactions: Allergies Allergy/AdvReac Type Severity Reaction Status Date / Time No Known Drug Allergies Allergy Verified 04/21/20 06:40 - MEDICATIONS Home Medications: Ambulatory Orders Medication Instructions Recorded Confirmed Oseltamivir Phosphate [Tamiflu] 75 mg PO BID #10 cap 01/17/22 - LABS Result Diagrams: 02/18/22 10:00
[2022-02-19 15:32] VITALS: BP 112/63
--- NOTE | 2022-02-19 17:16 | Labor Flowsheet ---
Labor Flowsheet Datetime Report Generated by CPN: 02/19/2022 17:16 Datetime: 02/19/2022 15:32 VITAL SIGNS NBP Sys/Sandra/Mean (mmHg): 112 : 63 : 74 Pulse: 64 Datetime: 02/18/2022 19:39 SpO2 (%): 100 Datetime: 02/18/2022 19:29 Stage of : Temperature (C): 36.9 PAIN Pain Scale: 1 Pain Presence: Intermittent Pain Type: Cramping; Ache Pain Location: Abdomen; Other Pain Assessment Comments: rectal pain from hemmorrhoids Datetime: 02/18/2022 17:15 Patient Care Comments: Pt up to bathroom Datetime: 02/18/2022 16:00 Temperature Route: Oral Pain Relief Measures: Comfort Measures Datetime: 02/18/2022 15:26 Membranes Ruptured Date/Time: 02/18/2022 10:15 Amniotic Fluid Odor: Normal Datetime: 02/18/2022 15:03 Vital Sign Comments: Unable to place SPO2 on Pt d/t Pt positioning for comfort Comments: difficulty tracing FHR d/t maternal position Datetime: 02/18/2022 15:00 UTERINE ACTIVITY Monitor Mode: External Frequency (min): 2-3 Quality: Strong Duration (sec): 50-70 Pattern: Normal: <= 5 Contractions in 10 Minutes Resting Tone (Palpate): Relaxed ASSESSMENT A Monitor Mode: External US Variability: Moderate 6-25 bpm Accelerations: None Decelerations: Early; Variable Category: Category II Datetime: 02/18/2022 14:55 Exam by: CNM Richie Vaginal Exam Comments: ant lip reduced Datetime: 02/18/2022 14:49 LaborFlag: Labor Datetime: 02/18/2022 14:33 VAGINAL EXAM Dilatation (cm): 8.0 Effacement (%): 80 Station: -1 PATIENT CARE Patient Position/Activity: Hands-Knees Datetime: 02/18/2022 14:30 FHR Baseline Rate : 140 Datetime: 02/18/2022 14:14 COMMUNICATION Communication Comments: RN remains at bedside, frequent assessment of heart rate Datetime: 02/18/2022 14:00 Resting Tone IUP (mmHg): Datetime: 02/18/2022 12:25 Monitor Interventions for UA: [place] Adjusted
== END 2022-02-19 16:30 | disposition home or self-care (01) | DRG 807 ==
LOC: WFO 06:52 → FBP 06:54 → WFO 10:04 → FBP 10:05
PROVIDERS: ADMIT Nurse Practitioner Obstetrics & Gynecology; ATTEND Nurse Practitioner Obstetrics & Gynecology
PROC: 10907ZC Drainage of Amniotic Fluid, Therapeutic from Products of Conception, Via Natural or Artificial Opening (ICD-10-PCS; principal; 2022-02-18)
PROC: 10E0XZZ Delivery of Products of Conception, External Approach (ICD-10-PCS; 2022-02-18)
DX: O72.1 Other immediate postpartum hemorrhage (principal); Z37.0 Single live birth; Z3A.39 39 weeks gestation of pregnancy
CPT/HCPCS: 59025; 85025; 86850; 86900; 86901; 99215; A9270